=== PATIENT | male | born 1930 | race Caucasian/White ===

== ENCOUNTER 2018-09-23 12:23 | Inpatient (IN) | payer MEDICARE, OTHER ==
[~2018-09-23] VITALS: Ht 177.8 cm; Wt 66.1 kg
[~2018-09-23 12:23] MED LIST: PHENYLEPHRINE 10 MG/ML ONE; PROPOFOL 10 MG/ML, 20ML ONE
[2018-09-23 12:59] LABS: CULTURE INDICATED? YES; MICROSCOPIC INDICATED
[2018-09-23 13:03] LABS: MEAN CORPUSCULAR HEMOGLOBIN 27.4 pg (27.5-34.5); MEAN CORPUSCULAR VOLUME 85.6 fL (81-97); MEAN PLATELET VOLUME 7.1 fL (7.4-10.4); PLATELET COUNT 400 x10^3/uL (130-400); RED BLOOD COUNT 4.07 x10^6/uL (4.38-5.82); RED CELL DISTRIBUTION WIDTH 15.6 % (9.4-14.8)
[2018-09-23 13:21] LABS: ALBUMIN 3.7 g/dL (3.4-5.0); ANION GAP 7 mmol/L (5-15); CALCIUM 8.9 mg/dL (8.5-10.1); CHLORIDE 97 mmol/L (98-107); CREATININE 1.22 mg/dL (0.7-1.3)
[2018-09-23 13:25] LABS: BASOPHILS # (AUTO) 0.01 x10^3/uL (0-0.1); BASOPHILS % (AUTO) 0 % (0-1); EOSINOPHILS # (AUTO) 0.01 x10^3/uL (0-0.4); EOSINOPHILS % (AUTO) 0 % (1-7); LYMPHOCYTES # (AUTO) 1.14 x10^3/uL (1-3.4); LYMPHOCYTES % (AUTO) 5 % (22-44); MD SCAN; MONOCYTES # (AUTO) 2.24 x10^3/uL (0.2-0.8); MONOCYTES % (AUTO) 10 % (2-9); NEUTROPHILS # (AUTO) 20.15 x10^3/uL (1.8-6.8); NEUTROPHILS % (AUTO) 86 % (42-75)
[2018-09-23] MEDS ORDERED: CEFTRIAXONE PMX 1GM/50ML 50 ML IVPB ONE (13:30)
[2018-09-23] MEDS ORDERED: CEFTRIAXONE PMX 1GM/50ML 50 ML ONE (13:38)
--- NOTE | 2018-09-23 14:19 | NUR ---
Pt's is Ani Oralia, ph# [phone].
--- NOTE | 2018-09-23 14:19 | NUR ---
LATE NOTE FOR 122: Pt brought in by EMS with c/o "lower abdominal pain beginning last night lasting for 3 hours and genarlly not feeling well today. Noticed blood in urine beginning last night." NADN. Pt AOX4, has unlabored respirations equal bilaterally, and cms is intact. PIV placed in right AC prior to arrival. Pt's spouse at bedside. Pt connected to NIBP and continous pulse ox. All safety meazsures in place. Call light within reach.
--- NOTE | 2018-09-23 15:13 | NUR ---
Report from Alee Moreno.
[2018-09-23] MEDS ORDERED: SODIUM CHLORIDE 0.9% 1,000ML IVBOLUS ONE (15:30)
[2018-09-23] MEDS ORDERED: SODIUM CHLORIDE FLUSH 10ML SYR IVF ONE (15:30)
--- NOTE | 2018-09-23 15:50 | NUR ---
PT TO CT VIA [facility].
[2018-09-23] MEDS ORDERED: FENTANYL PF 250 MCG/5ML ONE (16:43)
--- NOTE | 2018-09-23 16:53 | NUR ---
REPORT TO RAULITO RODRIGUEZ.
[2018-09-23] MEDS ORDERED: ACETAMINOPHEN 325 MG TABLET PO PRN ×2 (17:00→17:30)
[2018-09-23] MEDS ORDERED: HALOPERIDOL 5 MG/ML IV PRN (17:00)
[2018-09-23] MEDS ORDERED: MEPERIDINE/PF 25MG/0.5ML IVPush PRN (17:00)
[2018-09-23] MEDS ORDERED: PROMETHAZINE 25 MG/ML, 1ML IV PRN (17:00)
[2018-09-23] MEDS ORDERED: HYDROmorphone 2 MG/ML, 1ML IVPush PRN (17:00)
[2018-09-23] MEDS ORDERED: OXYcodone 5 MG/5 ML ORAL.SOL UDC PO PRN (17:00)
[2018-09-23] MEDS ORDERED: FENTANYL PF 100 MCG/2ML IV PRN (17:00)
[2018-09-23] MEDS ORDERED: hydrALAzine 20 MG/ML, 1ML IV PRN (17:00)
--- NOTE | 2018-09-23 17:10 | NUR ---
HOSPITALIST AT BEDSIDE. PT TO OR AFTER.
--- NOTE | 2018-09-23 17:15 | NUR ---
PT TO OR VIA [facility].
[2018-09-23] MEDS ORDERED: BISACODYL 10 MG SUPP PR PRN (17:30)
[2018-09-23] MEDS ORDERED: GLUCAGON 1 MG IM PRN (17:30)
[2018-09-23] MEDS ORDERED: DEXTROSE 4 GM TAB.CHEW PO PRN (17:30)
[2018-09-23] MEDS ORDERED: DEXTROSE 50%, 50ML SYRINGE IVPush PRN (17:30)
[2018-09-23] MEDS ORDERED: ONDANSETRON ODT 4 MG PO PRN (17:30)
[2018-09-23] MEDS ORDERED: ONDANSETRON 2MG/ML, 2ML IVPush PRN (17:30)
[2018-09-23] MEDS ORDERED: CEFTRIAXONE PMX 1GM/50ML 50 ML IV SCH (17:30)
[2018-09-23] MEDS ORDERED: HYDROcodone/APAP 5/325 TABLET PO PRN (17:30)
[2018-09-23] MEDS ORDERED: LABETALOL 5 MG/ML SYRINGE IVPush PRN (17:30)
[2018-09-23] MEDS ORDERED: SODIUM CHLORIDE FLUSH 10ML SYR IVF PRN (17:30)
[2018-09-23] MEDS ORDERED: hydrALAzine 20 MG/ML, 1ML IVPush PRN (17:30)
[2018-09-23] MEDS ORDERED: POLYETHYLENE GLYCOL 17 GM PACKET PO PRN (17:30)
[2018-09-23 19:34] VITALS: BP 108/65
[2018-09-23] MEDS: DOCUSATE 100 MG CAPSULE PO SCH (20:16)
[2018-09-23] MEDS: INSULIN LISPRO 100 UNITS/ML, PEN SQ-INSULIN SCH (20:32)
[2018-09-23] MEDS: SODIUM CHLORIDE 0.9% 1,000 ML IV SCH (20:51)
[2018-09-23] MEDS ORDERED: FAMOTIDINE 20 MG TABLET PO SCH (21:00)
[2018-09-23] MEDS: SODIUM CHLORIDE FLUSH 10ML SYR IVF SCH (21:00)
[2018-09-23] MEDS ORDERED: METF500T17 PO (21:54)
[2018-09-23] MEDS ORDERED: OMEP-110 PO (21:54)
[2018-09-23] MEDS ORDERED: CLOP75TA52 PO (21:54)
[2018-09-23] MEDS ORDERED: METO25TA35 PO (21:54)
[2018-09-23] MEDS ORDERED: SIMV20TA3 PO (21:54)
[2018-09-23] MEDS ORDERED: TAMS-11 PO (21:54)
[2018-09-23] MEDS ORDERED: FURO20TA3 PO (21:54)
[2018-09-23] MEDS ORDERED: INSU100V8 SQ (21:54)
[2018-09-23 23:34] VITALS: BP 124/73
[2018-09-24] MEDS: SODIUM CHLORIDE 0.9% 1,000 ML IV SCH ×2 (01:12→05:59)
[2018-09-24 04:01] VITALS: BP 111/60
[2018-09-24 05:17] LABS: MEAN CORPUSCULAR HEMOGLOBIN 28.9 pg (27.5-34.5); MEAN CORPUSCULAR HGB CONC 33.6 g/dL (33.2-36.2); MEAN CORPUSCULAR VOLUME 85.9 fL (81-97); MEAN PLATELET VOLUME 7.4 fL (7.4-10.4); PLATELET COUNT 309 x10^3/uL (130-400); RED BLOOD COUNT 3.26 x10^6/uL (4.38-5.82); RED CELL DISTRIBUTION WIDTH 15.4 % (9.4-14.8)
[2018-09-24 05:30] LABS: ANION GAP 6 mmol/L (5-15); CALCIUM 8.5 mg/dL (8.5-10.1); CHLORIDE 103 mmol/L (98-107)
[2018-09-24 05:32] LABS: CREATININE 0.73 mg/dL (0.7-1.3)
[2018-09-24 05:55] LABS: BASOPHILS # (AUTO) 0.02 x10^3/uL (0-0.1); BASOPHILS % (AUTO) 0 % (0-1); EOSINOPHILS # (AUTO) 0.05 x10^3/uL (0-0.4); EOSINOPHILS % (AUTO) 0 % (1-7); LYMPHOCYTES # (AUTO) 1.28 x10^3/uL (1-3.4); LYMPHOCYTES % (AUTO) 9 % (22-44); MD SCAN; MONOCYTES # (AUTO) 1.98 x10^3/uL (0.2-0.8); MONOCYTES % (AUTO) 13 % (2-9); NEUTROPHILS # (AUTO) 11.79 x10^3/uL (1.8-6.8); NEUTROPHILS % (AUTO) 78 % (42-75)
[2018-09-24] MEDS: INSULIN LISPRO 100 UNITS/ML, PEN SQ-INSULIN SCH ×4 (07:00→21:00)
[2018-09-24] MEDS: SODIUM CHLORIDE FLUSH 10ML SYR IVF SCH ×2 (07:34→21:00)
[2018-09-24 07:48] VITALS: BP 121/69
[2018-09-24 08:01] VITALS: BP 109/63
[2018-09-24] MEDS ORDERED: PHENAZOPYRIDINE 100 MG TABLET PO PRN (09:30)
[2018-09-24] MEDS: OMEPRAZOLE 20 MG CAPSULE.DR PO SCH ×2 (10:51→17:09)
[2018-09-24] MEDS: DOCUSATE 100 MG CAPSULE PO SCH ×2 (10:51→21:33)
[2018-09-24 13:57] VITALS: BP 94/53
[2018-09-24] MEDS ORDERED: CEFTRIAXONE PMX 1GM/50ML 50 ML IV SCH (14:00)
[2018-09-24] MEDS ORDERED: PHARMACOKINETIC MONITORING MC PRN (16:30)
[2018-09-24] MEDS ORDERED: VANCOMYCIN 1,500 MG in SODIUM CHLORIDE 0.9% 250 ML IV ONE (16:30)
[2018-09-24] MEDS ORDERED: PHARMACOKINETIC CONSULTATION MC ONE (16:30)
[2018-09-24] MEDS ORDERED: VANCOMYCIN PER PHARMACY MC PRN (16:30)
[2018-09-24] MEDS ORDERED: SODIUM CHLORIDE 0.9% 1,000 ML IV SCH (17:12)
[2018-09-24 18:32] VITALS: BP 131/60
[2018-09-24] MEDS ORDERED: TAMSULOSIN 0.4 MG CAP.ER.24H PO SCH (21:00)
[2018-09-24] MEDS ORDERED: SIMVASTATIN 20 MG TABLET PO SCH (21:00)
[2018-09-24] MEDS ORDERED: METOPROLOL TARTRATE 25 MG TABLET PO SCH (21:00)
[2018-09-25 00:35] VITALS: BP 97/65
[2018-09-25 05:34] LABS: MEAN CORPUSCULAR HEMOGLOBIN 28.7 pg (27.5-34.5); MEAN CORPUSCULAR HGB CONC 33.1 g/dL (33.2-36.2); MEAN CORPUSCULAR VOLUME 86.8 fL (81-97); MEAN PLATELET VOLUME 7.4 fL (7.4-10.4); PLATELET COUNT 351 x10^3/uL (130-400); RED BLOOD COUNT 3.47 x10^6/uL (4.38-5.82); RED CELL DISTRIBUTION WIDTH 15.6 % (9.4-14.8)
[2018-09-25 05:45] LABS: ANION GAP 9 mmol/L (5-15); CALCIUM 8.4 mg/dL (8.5-10.1); CHLORIDE 102 mmol/L (98-107)
[2018-09-25 05:46] LABS: CREATININE 1.02 mg/dL (0.7-1.3)
[2018-09-25] MEDS: OMEPRAZOLE 20 MG CAPSULE.DR PO SCH (06:37)
[2018-09-25 08:00] LABS: BASOPHILS # (AUTO) 0.02 x10^3/uL (0-0.1); BASOPHILS % (AUTO) 0 % (0-1); EOSINOPHILS # (AUTO) 0.41 x10^3/uL (0-0.4); EOSINOPHILS % (AUTO) 3 % (1-7); LYMPHOCYTES # (AUTO) 1.47 x10^3/uL (1-3.4); LYMPHOCYTES % (AUTO) 11 % (22-44); MD SCAN; MONOCYTES # (AUTO) 1.54 x10^3/uL (0.2-0.8); MONOCYTES % (AUTO) 11 % (2-9); NEUTROPHILS # (AUTO) 10.35 x10^3/uL (1.8-6.8); NEUTROPHILS % (AUTO) 75 % (42-75)
[2018-09-25] MEDS: INSULIN LISPRO 100 UNITS/ML, PEN SQ-INSULIN SCH ×2 (08:12→11:30)
[2018-09-25 08:46] VITALS: BP 128/70
[2018-09-25] MEDS: SODIUM CHLORIDE FLUSH 10ML SYR IVF SCH (08:52)
[2018-09-25] MEDS: DOCUSATE 100 MG CAPSULE PO SCH (08:52)
[2018-09-25] MEDS ORDERED: CLOPIDOGREL 75 MG TABLET PO SCH (09:00)
[2018-09-25] MEDS ORDERED: CEFD300C37 PO (11:04)
[2018-09-25] MEDS ORDERED: PHEN-582 PO (11:04)
[2018-09-25 14:06] VITALS: BP 107/62
[2018-09-25] MEDS ORDERED: VANCOMYCIN 1,300 MG in SODIUM CHLORIDE 0.9% 250 ML IV SCH (17:00)
== END 2018-09-25 16:25 | disposition home or self-care (01) | DRG 854 ==
LOC: ED 16:37 → EDIP 17:03 → 4NOR 19:23 → DCLOUNGE 09-25 16:10
PROVIDERS: ADMIT Internal Medicine; ATTEND Internal Medicine
PROC: 0T778DZ Dilation of Left Ureter with Intraluminal Device, Via Natural or Artificial Opening Endoscopic (ICD-10-PCS; principal; 2018-09-23 17:00)
DX: A41.9 Sepsis, unspecified organism (principal); E87.1 Hypo-osmolality and hyponatremia; N13.6 Pyonephrosis; N10 Acute pyelonephritis; I10 Essential (primary) hypertension; I25.10 Atherosclerotic heart disease of native coronary artery without angina pectoris; K21.9 Gastro-esophageal reflux disease without esophagitis; K44.9 Diaphragmatic hernia without obstruction or gangrene; K59.09 Other constipation; K80.20 Calculus of gallbladder without cholecystitis without obstruction; I95.89 Other hypotension; E11.51 Type 2 diabetes mellitus with diabetic peripheral angiopathy without gangrene; R31.9 Hematuria, unspecified; B96.1 Klebsiella pneumoniae [K. pneumoniae] as the cause of diseases classified elsewhere; Z96.642 Presence of left artificial hip joint; Z95.5 Presence of coronary angioplasty implant and graft; Z87.891 Personal history of nicotine dependence; Z79.02 Long term (current) use of antithrombotics/antiplatelets
CPT/HCPCS: 36415; 74176; 80048; 81001; 82040; 82962; 83605; 83735; 84100; 84145; 85025; 87040; 87077; 87086; 87186; 99285; G0378; J0696; J2704; J3010; J3370; C1758; C2617; J2370; J7030; J7050

== ENCOUNTER → 2018-10-09 | Outpatient (CLI) | payer MEDICARE ==
[~2018-10-09] MED LIST changes: +CEFD300C37 PO; +CLOP75TA52 PO; +FURO20TA3 PO; +INSU100V8 SQ; +METF500T17 PO; +METO25TA35 PO; +OMEP-110 PO; +PHEN-582 PO; -PHENYLEPHRINE 10 MG/ML ONE; -PROPOFOL 10 MG/ML, 20ML ONE; +SIMV20TA3 PO; +TAMS-11 PO
[2018-10-09 15:51] LABS: MEAN CORPUSCULAR HEMOGLOBIN 27.4 pg (27.5-34.5); MEAN CORPUSCULAR HGB CONC 32.4 g/dL (33.2-36.2); MEAN CORPUSCULAR VOLUME 84.8 fL (81-97); MEAN PLATELET VOLUME 6.7 fL (7.4-10.4); PLATELET COUNT 574 x10^3/uL (130-400); RED CELL DISTRIBUTION WIDTH 15.1 % (9.4-14.8)
[2018-10-09 15:58] LABS: ALBUMIN 3.2 g/dL (3.4-5.0); ANION GAP 7 mmol/L (5-15); CALCIUM 9.1 mg/dL (8.5-10.1); CHLORIDE 99 mmol/L (98-107)
[2018-10-09 16:01] LABS: MICROSCOPIC INDICATED
[2018-10-09 16:01] LABS: ALANINE AMINOTRANSFERASE 12 U/L (12-78); ALKALINE PHOSPHATASE 85 U/L (45-117); BILIRUBIN,TOTAL 0.5 mg/dL (0.2-1.0); CREATININE 0.95 mg/dL (0.7-1.3); TOTAL PROTEIN 6.9 g/dL (6.4-8.2)
[2018-10-09 16:18] LABS: BASOPHILS # (AUTO) 0.02 x10^3/uL (0-0.1); BASOPHILS % (AUTO) 0 % (0-1); EOSINOPHILS # (AUTO) 0.21 x10^3/uL (0-0.4); EOSINOPHILS % (AUTO) 1 % (1-7); LYMPHOCYTES # (AUTO) 1.47 x10^3/uL (1-3.4); LYMPHOCYTES % (AUTO) 8 % (22-44); MD MORPH REVIEW ONLY; MONOCYTES % (AUTO) 7 % (2-9); NEUTROPHILS # (AUTO) 16.48 x10^3/uL (1.8-6.8); NEUTROPHILS % (AUTO) 84 % (42-75)
[2018-10-09 16:22] LABS: ANISOCYTOSIS 1+
[2018-10-09 16:23] LABS: <PLATELET ESTIMATE> INCREASED; ACANTHOCYTES 1+; LARGE PLATELETS 1+; TOXIC GRAN 1+
== END | disposition home or self-care (01) ==
LOC: STAR 14:46
PROVIDERS: ATTEND Urology
DX: Z01.818 Encounter for other preprocedural examination (principal); N20.1 Calculus of ureter
CPT/HCPCS: 36415; 80053; 81001; 85025; 87086; 93005

== ENCOUNTER 2018-10-16 09:54 | Day surgery (SDC) | payer MEDICARE ==
[~2018-10-16] VITALS: Ht 177.8 cm; Wt 75.2 kg
[~2018-10-16 09:54] MED LIST changes: +BENA10TA4 PO; +POTA10TA31 PO
[2018-10-16 10:26] VITALS: BP 135/73
[2018-10-16] MEDS ORDERED: LACTATED RINGERS 1,000 ML IV SCH (10:29)
[2018-10-16] MEDS ORDERED: FENTANYL PF 100 MCG/2ML IV PRN (13:00)
[2018-10-16] MEDS ORDERED: PROMETHAZINE 25 MG/ML, 1ML IV PRN (13:00)
[2018-10-16] MEDS ORDERED: hydrALAzine 20 MG/ML, 1ML IV PRN (13:00)
[2018-10-16] MEDS ORDERED: ONDANSETRON 2MG/ML, 2ML IV PRN (13:00)
[2018-10-16] MEDS ORDERED: MEPERIDINE/PF 25MG/0.5ML IVPush PRN (13:00)
[2018-10-16] MEDS ORDERED: ONDANSETRON ODT 8 MG PO PRN (13:00)
[2018-10-16] MEDS ORDERED: OXYcodone 5 MG/5 ML ORAL.SOL UDC PO PRN (13:00)
[2018-10-16] MEDS ORDERED: PROMETHAZINE 25 MG/ML, 1ML IM PRN ×2 (13:00)
[2018-10-16] MEDS ORDERED: HYDROmorphone 2 MG/ML, 1ML IVPush PRN (13:00)
[2018-10-16] MEDS ORDERED: ACETAMINOPHEN 325 MG TABLET PO PRN (13:00)
[2018-10-16] MEDS ORDERED: MORPHINE SULFATE 4 MG/ML, 1ML IVPush PRN (13:00)
[2018-10-16] MEDS ORDERED: PROMETHAZINE 25 MG SUPP PR PRN (13:00)
[2018-10-16] MEDS ORDERED: LABETALOL 5MG/ML, 20ML IV PRN (13:00)
[2018-10-16] MEDS ORDERED: PROMETHAZINE 12.5 MG SUPP PR PRN (13:00)
[2018-10-16] MEDS ORDERED: GENTAMICIN IV ONE (13:30)
[2018-10-16] MEDS ORDERED: OMNIPAQUE 350 MG/ML, 50 ML BOTTLE IV ONE (13:57)
[2018-10-16] MEDS ORDERED: GLYCOPYRROLATE 0.2MG/1ML, 5ML ONE (14:37)
[2018-10-16] MEDS ORDERED: NEOSTIGMINE 1 MG/ML, 10ML ONE (14:37)
[2018-10-16] MEDS ORDERED: PROPOFOL 10 MG/ML, 20ML ONE (14:37)
[2018-10-16] MEDS ORDERED: CEFAZOLIN 1,000 MG ONE (14:37)
[2018-10-16] MEDS ORDERED: PHENYLEPHRINE 10 MG/ML ONE (14:37)
[2018-10-16] MEDS ORDERED: ROCURONIUM 10MG/ML,5ML ONE (14:37)
== END 2018-10-16 18:49 | disposition home or self-care (01) ==
LOC: OUT 09:54
PROVIDERS: ATTEND Urology
DX: N20.1 Calculus of ureter (principal); I10 Essential (primary) hypertension; E11.9 Type 2 diabetes mellitus without complications; I25.10 Atherosclerotic heart disease of native coronary artery without angina pectoris; Z98.890 Other specified postprocedural states; Z79.4 Long term (current) use of insulin; Z88.5 Allergy status to narcotic agent
CPT/HCPCS: 52356; 74420; 82360; 82962; 88300; C1758; C1769; C2617; J0690; J2370; J2704; J2710; J7120; Q9967

== ENCOUNTER → 2018-12-18 | Outpatient (CLI) | payer MEDICARE | END | disposition home or self-care (01) | LOC: RAD 09:34 | PROVIDERS: ATTEND Urology | DX: N21.1 Calculus in urethra (principal) | CPT/HCPCS: 74018 ==

== ENCOUNTER 2019-11-26 19:36 | Observation (INO) | payer MEDICARE ==
[~2019-11-26] VITALS: Ht 175.3 cm; Wt 71.8 kg
[~2019-11-26 19:36] MED LIST changes: -BENA10TA4 PO; +BENA10TA59 PO; +SIMV20TA19 PO; -SIMV20TA3 PO
[2019-11-26] MEDS ORDERED: SODIUM CHLORIDE FLUSH 10ML SYR IVF ONE (20:00)
[2019-11-26] MEDS ORDERED: SODIUM CHLORIDE 0.9% 1,000ML IVBOLUS ONE (20:00)
[2019-11-26] MEDS ORDERED: PLEASE ENTER ALLERGIES MC SCH (20:00)
[2019-11-26 20:11] LABS: BASOPHILS # (AUTO) 0.04 x10^3/uL (0-0.1); BASOPHILS % (AUTO) 0 % (0-1); EOSINOPHILS # (AUTO) 0.24 x10^3/uL (0-0.4); EOSINOPHILS % (AUTO) 2 % (1-7); LYMPHOCYTES # (AUTO) 1.49 x10^3/uL (1-3.4); LYMPHOCYTES % (AUTO) 12 % (22-44); MD NO; MEAN CORPUSCULAR HEMOGLOBIN 25.7 pg (27.5-34.5); MEAN CORPUSCULAR VOLUME 80.4 fL (81-97); MEAN PLATELET VOLUME 7.3 fL (7.4-10.4); MONOCYTES # (AUTO) 0.83 x10^3/uL (0.2-0.8); MONOCYTES % (AUTO) 7 % (2-9); NEUTROPHILS # (AUTO) 9.98 x10^3/uL (1.8-6.8); NEUTROPHILS % (AUTO) 79 % (42-75); PLATELET COUNT 329 x10^3/uL (130-400); RED CELL DISTRIBUTION WIDTH 16.9 % (9.4-14.8)
[2019-11-26 20:20] LABS: ALANINE AMINOTRANSFERASE 13 U/L (12-78); ALBUMIN 3.4 g/dL (3.4-5.0); ANION GAP 7 mmol/L (5-15); CALCIUM 8.9 mg/dL (8.5-10.1); CHLORIDE 104 mmol/L (98-107); CREATININE 1.05 mg/dL (0.7-1.3)
[2019-11-26 20:25] LABS: ALKALINE PHOSPHATASE 79 U/L (45-117); BILIRUBIN,TOTAL 0.4 mg/dL (0.2-1.0); TOTAL PROTEIN 7.3 g/dL (6.4-8.2); TROPONIN I < 0.015 ng/mL (0.000-0.045)
[2019-11-26] MEDS ORDERED: OMNIPAQUE 350 MG/ML, 75ML BOTTLE ONE (21:16)
[2019-11-26 23:30] VITALS: BP 102/58
[2019-11-27] VITALS (7 sets, daily range): BP systolic 92–128; BP diastolic 53–95
[2019-11-27] MEDS ORDERED: ONDANSETRON 2MG/ML, 2ML IVPush PRN
[2019-11-27] MEDS ORDERED: LACTATED RINGERS 1,000 ML IV SCH
[2019-11-27] MEDS ORDERED: ACETAMINOPHEN 325 MG TABLET PO PRN
[2019-11-27] MEDS ORDERED: INSULIN GLARGINE 100 UNITS/ML, PEN SQ-INSULIN SCH
[2019-11-27 06:32] LABS: CHOLESTEROL, TOTAL 75 mg/dL (140-239); HDL CHOL % 51 % (26-37); HDL CHOLESTEROL (DIRECT) 38 mg/dL (40-60); LDL CHOLESTEROL,CALCULATED 28 mg/dL (54-169); LDL/HDL RATIO 0.7 (0.5-3.0); TRIGLYCERIDES 45 mg/dL (50-200); TROPONIN I 0.016 ng/mL (0.000-0.045); VLDL CHOLESTEROL 9 mg/dL (0-25)
[2019-11-27] MEDS ORDERED: EPINEPHRINE 1 MG/ML, 1ML SQ PRN ×2 (08:00→10:00)
[2019-11-27] MEDS ORDERED: IRON DEXTRAN COMPLEX 25 MG in SODIUM CHLORIDE 0.9% 50 ML IV ONE ×2 (08:00→10:00)
[2019-11-27] MEDS ORDERED: CLOPIDOGREL 75 MG TABLET PO SCH (09:00)
[2019-11-27] MEDS ORDERED: SENNA/DOCUSATE TABLET PO SCH (09:00)
[2019-11-27] MEDS ORDERED: metFORMIN 500 MG TABLET PO SCH (09:00)
[2019-11-27] MEDS: OMEPRAZOLE 20 MG CAPSULE.DR PO SCH ×2 (09:45→17:32)
[2019-11-27] MEDS ORDERED: IRON DEXTRAN COMPLEX IV ONE (10:00)
[2019-11-27] MEDS ORDERED: SODIUM CHLORIDE 0.9% IV ONE (10:00)
[2019-11-27 13:07] LABS: OCCULT BLOOD NEGATIVE (NEGATIVE)
[2019-11-27] MEDS ORDERED: SIMVASTATIN 20 MG TABLET PO SCH (21:00)
== END 2019-11-27 19:00 | disposition home or self-care (01) ==
LOC: ED 22:16 → INTOOBSV 23:21 → EDIP 23:21 → 4EST 23:27
PROVIDERS: ADMIT Family Medicine; ATTEND Family Medicine
DX: R55 Syncope and collapse (principal); D50.9 Iron deficiency anemia, unspecified; E11.51 Type 2 diabetes mellitus with diabetic peripheral angiopathy without gangrene; E78.5 Hyperlipidemia, unspecified; I10 Essential (primary) hypertension; I25.10 Atherosclerotic heart disease of native coronary artery without angina pectoris; I35.0 Nonrheumatic aortic (valve) stenosis; I48.91 Unspecified atrial fibrillation; E86.0 Dehydration; I65.23 Occlusion and stenosis of bilateral carotid arteries; K44.9 Diaphragmatic hernia without obstruction or gangrene; K21.9 Gastro-esophageal reflux disease without esophagitis; N40.0 Benign prostatic hyperplasia without lower urinary tract symptoms; Z79.02 Long term (current) use of antithrombotics/antiplatelets; Z79.4 Long term (current) use of insulin; Z87.891 Personal history of nicotine dependence; Z90.49 Acquired absence of other specified parts of digestive tract; Z95.2 Presence of prosthetic heart valve; Z95.5 Presence of coronary angioplasty implant and graft; Z79.899 Other long term (current) drug therapy
CPT/HCPCS: 36415; 71045; 71275; 80053; 80061; 82272; 82533; 82728; 82962; 83036; 83540; 83550; 83880; 84443; 84466; 84484; 85025; 85379; 93005; 93306; 93880; 96361; 96365; 96366; 99285; G0378; J1750; J1815; J7030; J7050; J7120; Q9967

== ENCOUNTER 2019-12-10 09:39 | Day surgery (SDC) | payer MEDICARE ==
[~2019-12-10] VITALS: Ht 177.8 cm; Wt 77.3 kg
[2019-12-10] MEDS ORDERED: SODIUM CHLORIDE 0.9% 1,000 ML IV SCH ×2 (10:08→12:13)
[2019-12-10 10:20] VITALS: BP 152/59
[2019-12-10] MEDS ORDERED: PLEASE ENTER HEIGHT AND WEIGHT MC SCH (10:30)
[2019-12-10 10:59] LABS: ANION GAP 5 mmol/L (5-15); CHLORIDE 98 mmol/L (98-107); CREATININE 0.91 mg/dL (0.7-1.3)
[2019-12-10 11:00] LABS: BASOPHILS # (AUTO) 0.01 x10^3/uL (0-0.1); BASOPHILS % (AUTO) 0 % (0-1); EOSINOPHILS # (AUTO) 0.11 x10^3/uL (0-0.4); EOSINOPHILS % (AUTO) 1 % (1-7); LYMPHOCYTES # (AUTO) 1.11 x10^3/uL (1-3.4); LYMPHOCYTES % (AUTO) 12 % (22-44); MD NO; MEAN CORPUSCULAR HEMOGLOBIN 26.6 pg (27.5-34.5); MEAN CORPUSCULAR HGB CONC 32.2 g/dL (33.2-36.2); MEAN CORPUSCULAR VOLUME 82.7 fL (81-97); MEAN PLATELET VOLUME 7.5 fL (7.4-10.4); MONOCYTES # (AUTO) 0.62 x10^3/uL (0.2-0.8); MONOCYTES % (AUTO) 7 % (2-9); NEUTROPHILS # (AUTO) 7.26 x10^3/uL (1.8-6.8); NEUTROPHILS % (AUTO) 80 % (42-75); PLATELET COUNT 382 x10^3/uL (130-400); RED BLOOD COUNT 3.88 x10^6/uL (4.38-5.82); RED CELL DISTRIBUTION WIDTH 19.3 % (9.4-14.8)
[2019-12-10] MEDS ORDERED: LIDOCAINE-MPF 1%, 5ML ONE (11:11)
[2019-12-10] MEDS ORDERED: FENTANYL PF 100 MCG/2ML ONE (11:11)
[2019-12-10] MEDS ORDERED: MIDAZOLAM 1 MG/ML, 2ML ONE (11:11)
[2019-12-10] MEDS ORDERED: HEPARIN 1,000 UNITS/ML, 10ML ONE (11:11)
[2019-12-10] MEDS ORDERED: VERAPAMIL 2.5 MG/ML, 2ML ONE (11:11)
== END 2019-12-10 15:30 | disposition home or self-care (01) ==
LOC: CACL 09:39
PROVIDERS: ATTEND Internal Medicine Cardiovascular Disease
DX: I35.0 Nonrheumatic aortic (valve) stenosis (principal); I25.10 Atherosclerotic heart disease of native coronary artery without angina pectoris; I25.84 Coronary atherosclerosis due to calcified coronary lesion; I25.83 Coronary atherosclerosis due to lipid rich plaque; I77.1 Stricture of artery; E11.9 Type 2 diabetes mellitus without complications; E78.5 Hyperlipidemia, unspecified; I73.9 Peripheral vascular disease, unspecified; K21.9 Gastro-esophageal reflux disease without esophagitis; Z87.891 Personal history of nicotine dependence; Z88.5 Allergy status to narcotic agent; Z96.642 Presence of left artificial hip joint; Z98.890 Other specified postprocedural states; Z90.49 Acquired absence of other specified parts of digestive tract
CPT/HCPCS: 36415; 80048; 85025; 93454; 99156; C1769; C1894; J1644; J2250; J3010; Q9967

== ENCOUNTER → 2019-12-16 | Outpatient (CLI) | payer MEDICARE ==
[~2019-12-16] MED LIST changes: +VISIPAQUE 320 MG/ML, 150ML BOTTLE ONE
== END | disposition home or self-care (01) ==
LOC: RAD 09:22
PROVIDERS: ATTEND Internal Medicine Cardiovascular Disease
DX: Z01.810 Encounter for preprocedural cardiovascular examination (principal); K44.9 Diaphragmatic hernia without obstruction or gangrene; M43.8X6 Other specified deforming dorsopathies, lumbar region; M51.36 Other intervertebral disc degeneration, lumbar region; R06.02 Shortness of breath; I65.29 Occlusion and stenosis of unspecified carotid artery; I35.0 Nonrheumatic aortic (valve) stenosis; I70.0 Atherosclerosis of aorta
CPT/HCPCS: 71275; 74174; Q9967

== ENCOUNTER 2019-12-28 02:28 | Emergency (ER) | payer MEDICARE ==
[~2019-12-28] VITALS: Ht 177.8 cm; Wt 7.5 kg
[~2019-12-28 02:28] MED LIST changes: -VISIPAQUE 320 MG/ML, 150ML BOTTLE ONE
[2019-12-28] MEDS ORDERED: MORPHINE SULFATE 4 MG/ML, 1ML IVPush PRN (03:00)
[2019-12-28] MEDS ORDERED: MORPHINE SULFATE 4 MG/ML, 1ML ONE (03:01)
[2019-12-28 03:08] LABS: MEAN CORPUSCULAR HEMOGLOBIN 27.7 pg (27.5-34.5); MEAN CORPUSCULAR HGB CONC 32.6 g/dL (33.2-36.2); MEAN CORPUSCULAR VOLUME 84.8 fL (81-97); MEAN PLATELET VOLUME 7.4 fL (7.4-10.4); PLATELET COUNT 172 x10^3/uL (130-400); RED BLOOD COUNT 2.78 x10^6/uL (4.38-5.82); RED CELL DISTRIBUTION WIDTH 22.2 % (9.4-14.8)
[2019-12-28 03:13] LABS: ALBUMIN 2.7 g/dL (3.4-5.0); ANION GAP 7 mmol/L (5-15); CALCIUM 8.8 mg/dL (8.5-10.1); CHLORIDE 101 mmol/L (98-107); CREATININE 0.99 mg/dL (0.7-1.3)
--- NOTE | 2019-12-28 03:36 | NUR ---
SPOKE WITH PT'S SPOUSE ON THE PHONE AND UPDATED ON POC. AHMET [phone]
--- NOTE | 2019-12-28 03:57 | NUR ---
PT RESTING ON GURNEY, REPORTS DECREASED PAIN AT THIS TIME. UPDATED ON POC, MONITORING IN PLACE.
[2019-12-28] MEDS ORDERED: OMNIPAQUE 350 MG/ML, 75ML BOTTLE ONE (04:00)
[2019-12-28 04:20] LABS: BASOPHILS % (AUTO) 0 % (0-1); EOSINOPHILS # (AUTO) 0.05 x10^3/uL (0-0.4); EOSINOPHILS % (AUTO) 0 % (1-7); LYMPHOCYTES # (AUTO) 0.67 x10^3/uL (1-3.4); LYMPHOCYTES % (AUTO) 5 % (22-44); MD SCAN; MONOCYTES % (AUTO) 9 % (2-9); NEUTROPHILS # (AUTO) 12.65 x10^3/uL (1.8-6.8); NEUTROPHILS % (AUTO) 86 % (42-75)
--- NOTE | 2019-12-28 05:45 | NUR ---
ATTEMPTED TO AMBUALTE PT. PT ABLE TO BEAR OWN WEIGHT WITH ASSISTANCE OF WALKER. UNABLE TO MOVE/STEP WITH WALKER. X2 STANDBY ASSIST IN PLACE DURING AMBULATION ATTEMPT.
--- NOTE | 2019-12-28 06:54 | NUR ---
Report from Yoko CABEZAS. Pt resting in bed, EMILIE, denies needs. Pt's at bedside POC discussed. Pt to be transfered back to [facility] via EMS.
[2019-12-28 08:14] VITALS: BP 112/44
--- NOTE | 2019-12-28 08:14 | NUR ---
Pt resting in bed with eyes closed, resp even and unlabored, NADN. Awaiting EMS transport back to [facility].
--- NOTE | 2019-12-28 08:38 | NUR ---
[facility] HERE FOR PICK DISCHARGE, BELONGINGS WITH PATIENT
== END 2019-12-28 08:40 | disposition home or self-care (01) ==
LOC: ED 08:03
DX: S20.212A Contusion of left front wall of thorax, initial encounter (principal); S30.1XXA Contusion of abdominal wall, initial encounter; S09.90XA Unspecified injury of head, initial encounter; R07.9 Chest pain, unspecified; M54.2 Cervicalgia; E11.9 Type 2 diabetes mellitus without complications; I48.91 Unspecified atrial fibrillation; E78.5 Hyperlipidemia, unspecified; I11.0 Hypertensive heart disease with heart failure; I50.33 Acute on chronic diastolic (congestive) heart failure; K21.9 Gastro-esophageal reflux disease without esophagitis; Z96.642 Presence of left artificial hip joint; Z87.891 Personal history of nicotine dependence; Z98.62 Peripheral vascular angioplasty status; W18.30XA Fall on same level, unspecified, initial encounter; Y93.89 Activity, other specified; Y92.009 Unspecified place in unspecified non-institutional (private) residence as the place of occurrence of the external cause; Y99.8 Other external cause status
CPT/HCPCS: 36415; 70450; 71260; 72125; 73030; 80048; 82040; 85025; 96374; 99285; J2270; Q9967